=== PATIENT | female | born 1945 | race Caucasian/White ===

== ENCOUNTER 2017-05-24 14:34 | Emergency (ER) | payer MEDICARE ==
[~2017-05-24] VITALS: Ht 175.3 cm; Wt 50.0 kg
[~2017-05-24 14:34] MED LIST: ACLI400A2 INH; AMLO10TA2 PO; AMLO5TAB2 PO; AMLO5TAB4 PO; ASPI-515 PO; BUDE10.2 PO; CLOP75TA PO; DIVA125T3 PO; DOCU-131 PO; ENOX40SY4 SQ; FLUT16SP2 NAS; FLUT1DIS3 INH; HYDR-3237 PO; IBUP-1223 PO; LEVO750T26 PO; LISI-167 PO; LISI-170 PO; MEMA10TA PO; METO25TA91 PO; METO50TA82 PO; ONDA4TAB12 PO; OXYC10TA6 PO; OXYC5CAP2 PO; PANT40TA3 PO; POTA20TA89 PO; POTA20TA91 PO; POTA25TA4 PO; TRAM50TA2 PO; ZOLP-413 PO; [UNRECOGNIZED DRUG - CODE] PO
[2017-05-24] MEDS ORDERED: SODIUM CHLORIDE FLUSH 10ML SYR IVF ONE (15:00)
[2017-05-24] MEDS ORDERED: SODIUM CHLORIDE 0.9% 1,000ML IVBOLUS ONE (15:00)
[2017-05-24] MEDS ORDERED: DIPH,PERTUSS(ACELL),TET VAC/PF 0.5 ML IM-VACC ONE (15:00)
[2017-05-24 15:08] LABS: HEMATOCRIT 35.9 % (34.6-47.8); HEMOGLOBIN 11.9 g/dL (11.7-16.4); WHITE BLOOD COUNT 6.9 x10^3/uL (3.4-10)
[2017-05-24 15:17] LABS: BLOOD UREA NITROGEN 20 mg/dL (7-18)
[2017-05-24 16:18] LABS: PATH.CAST-FLAG NOT PRESENT; SPERM-FLAG NOT PRESENT; SRC-FLAG NOT PRESENT; XTAL-FLAG NOT PRESENT; YLC-FLAG NOT PRESENT
[2017-05-24] MEDS ORDERED: SILVER NITRATE STICK TP ONE ×2 (16:36→17:00)
[2017-05-24] MEDS ORDERED: LIDOCAINE 1%-EPI 1:100K, 20ML INFIL ONE (17:00)
[2017-05-24] MEDS ORDERED: BACITRACIN ZINC OINT 500U/GM, 0.9 GM ONE ×2 (18:03→18:58)
[2017-05-24 19:30] VITALS: BP 125/77
== END 2017-05-24 19:32 | disposition home or self-care (01) ==
LOC: ED 16:31
DX: S81.812A Laceration without foreign body, left lower leg, initial encounter (principal); J44.9 Chronic obstructive pulmonary disease, unspecified; I10 Essential (primary) hypertension; F41.9 Anxiety disorder, unspecified; M81.0 Age-related osteoporosis without current pathological fracture; W06.XXXA Fall from bed, initial encounter; Y93.89 Activity, other specified; Y92.098 Other place in other non-institutional residence as the place of occurrence of the external cause; Y99.8 Other external cause status; Z86.73 Personal history of transient ischemic attack (TIA), and cerebral infarction without residual deficits
CPT/HCPCS: 36415; 73590; 80048; 81001; 82040; 83605; 85025; 87086; 96360; 96361; 97597; 99285; J7030

== ENCOUNTER 2018-04-17 18:57 | Emergency (ER) | payer MEDICARE ==
[~2018-04-17] VITALS: Ht 172.7 cm; Wt 50.0 kg
[~2018-04-17 18:57] MED LIST changes: -AMLO10TA2 PO; +AMLO10TA6 PO; -AMLO5TAB2 PO; +AMLO5TAB7 PO; -DIVA125T3 PO; +DIVA125T31 PO
[2018-04-17 19:11] VITALS: BP 133/62
[2018-04-17] MEDS ORDERED: TRAM100T33 PO (19:59)
== END 2018-04-17 20:46 | disposition home or self-care (01) ==
LOC: ED 20:10
DX: S62.327A Displaced fracture of shaft of fifth metacarpal bone, left hand, initial encounter for closed fracture (principal); J44.9 Chronic obstructive pulmonary disease, unspecified; I10 Essential (primary) hypertension; Z86.73 Personal history of transient ischemic attack (TIA), and cerebral infarction without residual deficits; W01.0XXA Fall on same level from slipping, tripping and stumbling without subsequent striking against object, initial encounter; Y93.89 Activity, other specified; Y92.009 Unspecified place in unspecified non-institutional (private) residence as the place of occurrence of the external cause; Y99.8 Other external cause status
CPT/HCPCS: 29125; 99284